=== PATIENT | male | born 1955 | race Caucasian/White ===

== ENCOUNTER 2024-07-19 09:41 | Emergency (ER) | payer OTHER ==
[~2024-07-19] VITALS: Ht 177.8 cm; Wt 83.0 kg
[~2024-07-19 09:41] MED LIST: INSULIN
[2024-07-19 09:47] VITALS: BP 127/76; PULSE 80; RESP 16; TEMP 97.8; O2SAT 100
[2024-07-19] MEDS ORDERED: MORPHINE SULFATE 4 MG/ML INJ (FOR IV/IM USE) IV STA (09:52)
[2024-07-19] MEDS ORDERED: KETOROLAC 30MG/ML VIAL IV STA (09:52)
[2024-07-19 10:32] LABS: BASOPHILS % 0.9 % (0.0-2.0); EOSINOPHILS % 2.4 % (0.0-5.0); HEMATOCRIT. 40.5 % (42.0-52.0); HEMOGLOBIN. 13.8 g/dL (14.0-18.0); LYMPHOCYTES % 17.5 % (20.0-50.0); MEAN CORPUSCULAR HEMOGLOBIN 32.4 pg (28.0-32.0); MEAN CORPUSCULAR HGB CONC 34.2 g/dL (31.0-37.0); MEAN CORPUSCULAR VOLUME 94.9 fL (80.0-94.0); MEAN PLATELET VOLUME 7.7 fl (7.4-10.4); NEUTROPHILS % 72.2 % (40.0-76.0); PLATELET 209 x1000/uL (130-400); RED BLOOD CELL COUNT 4.26 mill/uL (4.7-6.1); RED CELL DISTRIBUTION WIDTH 13.6 % (11.6-14.6); WHITE BLOOD COUNT 7.6 x1000/uL (4.5-11.0)
[2024-07-19 10:36] LABS: CLARITY URINE CLEAR (CLEAR); COLOR URINE DARK YELLOW (YELLOW); GLUCOSE URINE NEGATIVE (NEGATIVE); KETONES URINE TRACE (NEGATIVE); LEUKOCYTE ESTERASE URINE TRACE (NEGATIVE); NITRITE URINE NEGATIVE (NEGATIVE); OCCULT BLOOD URINE NEGATIVE (NEGATIVE); PH URINE 5.5 (4.5-8.0); PROTEIN URINE TRACE (NEGATIVE); SPECIFIC GRAVITY URINE 1.016 (1.005-1.030)
[2024-07-19 10:37] LABS: CARBON DIOXIDE 29 mEq/L (21-32); CHLORIDE 105 mEq/L (98-107); POTASSIUM 4.6 mEq/L (3.5-5.1); SODIUM 139 mEq/L (136-145)
[2024-07-19 10:38] LABS: CALCIUM 9.6 mg/dL (8.7-10.4)
[2024-07-19 10:43] LABS: CREATININE 1.1 mg/dL (0.6-1.3); GLUCOSE 140 mg/dL (70-105); UREA NITROGEN BLOOD 12 mg/dL (9-23)
[2024-07-19 10:45] LABS: ALANINE AMINOTRANSFERASE 31 IU/L (10-49); ALBUMIN 4.5 g/dL (3.2-4.8); ASPARTATE AMINOTRANSFERASE 24 IU/L (<34); BILIRUBIN DIRECT 0.4 mg/dL (<=3.0); BILIRUBIN TOTAL 1.2 mg/dL (0.1-1.0); PROTEIN TOTAL 6.9 g/dL (6.0-8.3)
[2024-07-19 10:47] LABS: ETHANOL BLOOD < 10 mg/dL (<10); TROPONIN I HIGH SENSITIVITY < 4 ng/L (3.0-53)
[2024-07-19 10:57] LABS: HYALINE CASTS URINE 0-5 /lpf; MUCUS URINE 2+ /lpf (NONE/TRACE); WBC URINE 0-2 /hpf (0-2)
[2024-07-19 10:58] LABS: BACTERIA URINE NONE SEEN; RBC URINE NONE SEEN /hpf (0-2); SQUAMOUS EPITHELIAL CELL URINE FEW /lpf (RARE/1+)
[2024-07-19 11:12] LABS: *AMPHETAMINES SCREEN URINE NEGATIVE (NEGATIVE); *BARBITURATES SCREEN URINE NEGATIVE (NEGATIVE); *BENZODIAZEPINES SCREEN URINE NEGATIVE (NEGATIVE); *COCAINE SCREEN URINE NEGATIVE (NEGATIVE); METHADONE URINE SCREEN NEGATIVE (NEGATIVE); OPIATES URINE SCREEN NEGATIVE (NEGATIVE)
[2024-07-19 11:13] LABS: CANNABINOID URINE SCREEN NEGATIVE (NEGATIVE); ECSTASY MDMA SCREEN URINE NEGATIVE (NEGATIVE); PHENCYCLIDINE URINE SCREEN NEGATIVE (NEGATIVE)
[2024-07-19] MEDS: MORPHINE SULFATE 4 MG/ML INJ (FOR IV/IM USE) IV NR (12:05)
[2024-07-19] MEDS: KETOROLAC 30MG/ML VIAL IV NR (12:05)
[2024-07-19] MEDS: SODIUM CHLORIDE 0.9% 1,000 ML IV ONE (12:05)
[2024-07-19] MEDS: HYDROCODONE/ACETAMINOPHEN 10/325MG TABLET PO ONE (12:32)
[2024-07-19] MEDS: KETOROLAC 30MG/ML VIAL IM ONE (12:33)
== END 2024-07-19 13:06 | disposition home or self-care (01) ==
LOC: ER 09:41
DX: R10.31 Right lower quadrant pain (principal); E11.9 Type 2 diabetes mellitus without complications; I10 Essential (primary) hypertension; Z98.890 Other specified postprocedural states
CPT/HCPCS: 80076; 80305; 80048; 81003; 80320; 83690; 85025; 85610; 84484; 36415; 74176; 96372; 99285; J1885; J7030; G0480